=== PATIENT | female | born 1995 | race Caucasian/White ===

== ENCOUNTER 2019-09-21 00:10 | Emergency (ER) | payer OTHER ==
[~2019-09-21] VITALS: Ht 165.1 cm; Wt 131.5 kg
--- NOTE | 2019-09-21 00:10 | NUR ---
PT IN OF TENT TO BE SEEN BY ERMD.
[2019-09-21 00:21] VITALS: BP 140/74
--- NOTE | 2019-09-21 00:31 | NUR ---
DORINDA ASSESING PT IN OF TENT.
[2019-09-21] MEDS ORDERED: KETOROLAC 60 MG/2 ML VIAL IM ONE (00:35)
[2019-09-21 00:57] VITALS: BP 125/84
--- NOTE | 2019-09-21 01:00 | NUR ---
Patient discharged with v/s stable. Written and verbal after care instructions given and explained. Patient verbalized understanding. Ambulatory with steady gait. All questions addressed prior to discharge. Advised to follow up with PMD. Prescription of motrin and prednisone given. Pt d/c.
== END 2019-09-21 01:00 | disposition home or self-care (01) ==
LOC: MED 00:10
DX: U07.1 COVID-19 (principal); R07.89 Other chest pain; R06.02 Shortness of breath; F17.200 Nicotine dependence, unspecified, uncomplicated; J45.909 Unspecified asthma, uncomplicated
CPT/HCPCS: 96372; 99283; J1885

== ENCOUNTER 2020-01-02 18:21 | Emergency (ER) | payer OTHER ==
[~2020-01-02] VITALS: Ht 165.1 cm; Wt 122.9 kg
[2020-01-02 19:00] VITALS: BP 150/81
--- NOTE | 2020-01-02 19:04 | NUR ---
TO LOBBY AMBULATORY, WITH SPICEMEN CUP FOR URINE
[2020-01-02 20:34] LABS: APPEARANCE,URINE HAZY (CLEAR); BILIRUBIN,URINE NEGATIVE (NEGATIVE); BLOOD, URINE 3+ (NEGATIVE); COLOR,URINE YELLOW (YELLOW); LEUKOCYTE ESTERASE ,URINE 2+ (NEGATIVE); NITRITE, URINE NEGATIVE (NEGATIVE); UGLUCOSE NEGATIVE (NEGATIVE)
--- NOTE | 2020-01-02 20:49 | NUR ---
PT TAKEN TO BED #7 VIA W/C
--- NOTE | 2020-01-02 20:50 | NUR ---
PT RETURNED FROM ULTRASOUND AND PLACED IN BED 7
--- NOTE | 2020-01-02 20:51 | NUR ---
LAB AT BEDSIDE
[2020-01-02 21:00] LABS: BASOPHILS # (AUTO) 0.1 K/uL (0.00-0.22); EOSINOPHILS # (AUTO) 0.1 K/uL (0-0.4); EOSINOPHILS % (AUTO) 2.2 % (0.0-4.0); HEMATOCRIT 42.3 % (36-48); HEMOGLOBIN 14.2 g/dL (12.0-16.0); LYMPHOCYTES # (AUTO) 2.9 K/uL (2.5-16.5); LYMPHOCYTES % (AUTO) 45.4 % (20.5-51.1); MEAN CORPUSCULAR HEMOGLOBIN 26 pg (27-31); MEAN CORPUSCULAR HGB CONC 33 g/dL (33-37); MEAN CORPUSCULAR VOLUME 77.3 fL (80-94); MONOCYTES # (AUTO) 0.5 K/uL (0.8-1.0); MONOCYTES % (AUTO) 7.3 % (1.7-9.3); NEUTROPHILS # (AUTO) 2.8 K/uL (1.8-7.7); NEUTROPHILS % (AUTO) 44.1 % (42.2-75.2); PLATELET COUNT (AUTO) 342 K/uL (140-450); RED BLOOD CELL COUNT(AUTO) 5.48 MIL/uL (4.20-5.40); RED CELL DISTRIBUTION WIDTH 14.7 % (11.6-13.7); WHITE BLOOD COUNT (AUTO) 6.3 K/uL (4.8-10.8)
--- NOTE | 2020-01-02 21:04 | NUR ---
PT HAS AN IUD THAT WAS PLACED 1 YR AGO. LAST PERIOD SHE HAD LASTED 2 WEEKS AND LAST WEEK SHE STARTED HAVING LOWER INTERMITTENT ABD CRAMPING THAT RADIATES INTO HER BACK. RATES PAIN 10/10 WHEN CRAMPING STARTS, SHE ALSO GETS NAUSEATED, DENIES ANY VOMITING OR DIARRHEA. PT STATES SHE IS CURRENTLY SPOTTING. 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 DENIES FEVER, NO PAIN WITH URINATION. BED IN LOWEST POSITION, LOCKED AND SIDE RAIL UP X 1. HX - ASTHMA, DEPRESSION NKA
[2020-01-02 21:08] LABS: RBC,URINE 20-50 /HPF (0-5)
[2020-01-02 21:12] LABS: ALBUMIN 3.8 g/dL (3.4-5.0); ANION GAP 10.9 (8-16); CARBON DIOXIDE 29.7 mmol/L (21-32); CREATININE 0.8 mg/dL (0.6-1.3); POTASSIUM 3.6 mmol/L (3.5-5.1); TOTAL BILIRUBIN 0.5 mg/dL (0.0-1.0)
[2020-01-02] MEDS ORDERED: KETOROLAC 30 MG/ML VIAL IM ONE (21:45)
[2020-01-02 22:00] VITALS: BP 142/79
--- NOTE | 2020-01-02 22:00 | NUR ---
Patient discharged with v/s stable. Written and verbal after care instructions given and explained. Patient alert, oriented and verbalized understanding of instructions. Ambulatory with steady gait. All questions addressed prior to discharge. ID band removed. Patient advised to follow up with PMD. Rx of PERCOCET given. Patient educated on indication of medication including possible reaction and side effects. Opportunity to ask questions provided and answered.
== END 2020-01-02 22:00 | disposition home or self-care (01) ==
LOC: MED 18:21
DX: R10.30 Lower abdominal pain, unspecified (principal)
CPT/HCPCS: 36415; 76856; 80053; 81001; 81025; 84702; 85025; 87086; 93976; 96372; 99284; J1885